=== PATIENT | female | born 1955 | race African-American/Black ===

== ENCOUNTER 2017-05-05 12:16 | Emergency (ER) | payer OTHER ==
[~2017-05-05] VITALS: Ht 167.6 cm; Wt 85.0 kg
[~2017-05-05 12:16] MED LIST: VICODIN 5-3001 EACH PO
[2017-05-05 14:43] LABS: HEMATOCRIT 38.9 % (36.0-46.0); MCH 30.3 PG (29.0-34.0); MCHC 32.9 G/DL (30.0-36.0); MEAN PLAT.VOLUME 9.9 uM^3 (9.5-12.4); PLATELET COUNT 272 K/uL (156-360); RBC DIS.WIDTH-CV 12.2 % (11.8-14.6); RED BLOOD COUNT 4.23 M/uL (3.80-5.20); WHITE BLOOD COUNT 8.7 K/uL (4.1-10.2)
[2017-05-05 14:48] LABS: PROTHROMBIN TIME 11.4 SEC (10.2-12.9)
[2017-05-05 14:51] LABS: CHLORIDE 103 mEq/L (99-109); PTT 29.3 SEC (25-37); SODIUM 138 mEq/L (136-147)
[2017-05-05 14:52] LABS: GLUCOSE 108 mg/dL (70-99)
[2017-05-05 14:54] LABS: ANION GAP 9 MEQ/L (2-14)
[2017-05-05 14:56] LABS: GFR ESTIMATE (CALCULATED) > 59 mL/min/
[2017-05-05 14:57] LABS: UREA NITROGEN (BUN) 13 mg/dL (9-23)
[2017-05-05] MEDS ORDERED: XARELTO1 EACH PO (15:05)
[2017-05-05] MEDS ORDERED: PERCOCET 5/31 TABLET PO (15:08)
[2017-05-05 15:44] VITALS: BP 138/87
== END 2017-05-05 15:44 | disposition home or self-care (01) ==
LOC: EME 12:16
PROVIDERS: Physician Assistant
DX: I82.4Z2 Acute embolism and thrombosis of unspecified deep veins of left distal lower extremity (principal); I10 Essential (primary) hypertension; Z96.651 Presence of right artificial knee joint; F17.200 Nicotine dependence, unspecified, uncomplicated
CPT/HCPCS: 80048; 85027; 85610; 85730; 99281; 99283

== ENCOUNTER 2017-05-06 21:13 | Emergency (ER) | payer OTHER ==
[~2017-05-06] VITALS: Ht 167.6 cm; Wt 88.5 kg
[~2017-05-06 21:13] MED LIST changes: +PERCOCET 5/31 TABLET PO; +XARELTO1 EACH PO
[2017-05-06 21:52] LABS: HEMATOCRIT 33.6 % (36.0-46.0); MCH 30.5 PG (29.0-34.0); MCV 92.3 FL (83-99); MEAN PLAT.VOLUME 10.2 uM^3 (9.5-12.4); PLATELET COUNT 223 K/uL (156-360); RBC DIS.WIDTH-CV 12.1 % (11.8-14.6); RED BLOOD COUNT 3.64 M/uL (3.80-5.20); WHITE BLOOD COUNT 5.9 K/uL (4.1-10.2)
[2017-05-06 22:05] LABS: CHLORIDE 103 mEq/L (99-109); POTASSIUM 3.9 mEq/L (3.7-5.4); SODIUM 138 mEq/L (136-147)
[2017-05-06 22:07] LABS: GLUCOSE 109 mg/dL (70-99)
[2017-05-06 22:08] LABS: ANION GAP 8 MEQ/L (2-14)
[2017-05-06 22:09] LABS: TOTAL BILIRUBIN 0.6 mg/dL (0.0-1.0)
[2017-05-06 22:10] LABS: ALKALINE PHOSPHATASE 90 IU/L (3-129)
[2017-05-06 22:11] LABS: GFR ESTIMATE (CALCULATED) > 59 mL/min/
[2017-05-06 22:14] LABS: LIPASE 31 U/L (1.0-51.0); UREA NITROGEN (BUN) 21 mg/dL (9-23)
[2017-05-06 22:25] LABS: ADD MIUA? YES; BILIRUBIN NEGATIVE; BLOOD SMALL; COLOR YELLOW ((YELLOW)); GLUCOSE (STRIP) NEGATIVE; KETONES NEGATIVE; LEUKOCYTES SMALL; NITRITE NEGATIVE; PROTEIN (STRIP) NEGATIVE; SPECIFIC GRAVITY 1.013 (1.000-1.030); UROBILINOGEN 0.2 MG/DL (0.2-1.0)
[2017-05-06 22:29] LABS: BACTERIA RARE /HPF; EPITHELIAL CELLS 2+ /HPF; MUCUS TRACE /LPF; RED BLOOD CELLS 0-5 /HPF (0-5); UCUL ADDED? NO; WHITE BLOOD CELLS 0-5 /HPF (0-5)
[2017-05-07 00:30] VITALS: BP 132/66
== END 2017-05-07 00:48 | disposition home or self-care (01) ==
LOC: EME 21:13
PROVIDERS: Emergency Medicine
DX: R10.32 Left lower quadrant pain (principal); I10 Essential (primary) hypertension; Z86.718 Personal history of other venous thrombosis and embolism; F17.200 Nicotine dependence, unspecified, uncomplicated
CPT/HCPCS: 74177; 80053; 81003; 83690; 85027; 99281; 99285; J3010; J7030

== ENCOUNTER 2017-06-15 23:06 | Emergency (ER) | payer OTHER ==
[~2017-06-15] VITALS: Ht 167.6 cm; Wt 86.3 kg
[2017-06-16] MEDS ORDERED: MOBIC15 MG PO (02:27)
[2017-06-16] MEDS ORDERED: PERCOCET 5/31 TABLET PO (02:27)
[2017-06-16 02:45] VITALS: BP 157/99
== END 2017-06-16 02:46 | disposition home or self-care (01) ==
LOC: EXP 23:06 → EME 23:06 → EXP 06-16 02:46
DX: M17.12 Unilateral primary osteoarthritis, left knee (principal); M79.89 Other specified soft tissue disorders; Z86.718 Personal history of other venous thrombosis and embolism; Z79.01 Long term (current) use of anticoagulants
CPT/HCPCS: 73564; 93971; 99281; 99284